=== PATIENT | male | born 1970 | race American Indian/Alaskan Native ===

== ENCOUNTER 2017-02-04 02:14 | Emergency (ER) | payer OTHER, SELFPAY ==
--- NOTE | 2017-02-04 03:48 | EDM.PDOCBH ---
ED HPI GENERAL MEDICAL PROBLEM - General Chief Complaint: Drug or Alcohol Abuse Stated Complaint: MEDICAL CLEARANCE FOR DETOX Time Seen by Provider: 02/04/17 03:46 Source of Information: Reports: Patient History Limitations: Reports: No Limitations - History of Present Illness INITIAL COMMENTS - FREE TEXT/NARRATIVE: brought in for intox clearance - Related Data Allergies Allergy/AdvReac Type Severity Reaction Status Date / Time Unable to Assess Allergy Unverified 02/04/17 03:38 Home Meds: Home Meds . [Unable to Verify Home Med List] 02/04/17 [History] ED ROS GENERAL - Review of Systems Review Of Systems: ROS reveals no pertinent complaints other than HPI. 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.) Eye Exam: Bilateral Eye: PERRL (pupils ess ER @ 4mm) Ears: Hearing Grossly Normal Throat/Mouth: Normal Voice, No Airway Compromise Head: Atraumatic Neck: Non-Tender, Full Range of Motion Respiratory/Chest: No Respiratory Distress Cardiovascular: Regular Rate, Rhythm GI/Abdominal: Soft, Non-Tender Neurological: Alert, Normal Cognition, Normal Gait, No Motor/Sensory Deficits, Oriented x 3 Skin Exam: Warm, Dry, Normal color COURSE, BEHAVIORAL HEALTH COMP - Course Vital Signs: Last Vital Signs Temp 35.8 C 02/04/17 03:08 Pulse 83 02/04/17 03:08 Resp 16 02/04/17 03:08 BP 114/80 02/04/17 03:08 Pulse Ox 97 02/04/17 03:08 Orders, Labs, Meds: Active Orders 24 hr Category Date Time Status COMPREHENSIVE METABOLIC PN,CMP [CHEM] Stat Lab 02/04/17 03:24 Received ETOH [ETHANOL BLOOD MEDICAL] [CHEM] Stat Lab 02/04/17 03:24 Received Laboratory Tests 02/04/17 Range/Units 03:24 WBC 9.1 (5.0-10.0) 10^3/uL RBC 5.09 (4.6-6.2) 10^6/uL Hgb 15.4 (14.0-18.0) g/dL Hct 44.9 (40.0-54.0) % MCV 88.2 (80-100) fL MCH 30.3 (27.0-34.0) pg MCHC 34.3 (33.0-35.0) g/dL Plt Count 258 (150-450) 10^3/uL Neut % (Auto) 53.3 (42.2-75.2) % Lymph % (Auto) 34.4 (20.5-50.1) % [place] % (Auto) 5.3 (2-8) % Eos % (Auto) 6.2 H (1.0-3.0) % Baso % (Auto) 0.8 (0.0-1.0) % Departure - Departure Time of Disposition: 03:47 Disposition: DC/Tfer to Court of Law En 21 Condition: Good Clinical Impression: Alcohol abuse - Discharge Information Additional Instructions: MEDICALLY CLEARED FOR DETOX - My Orders Last 24 Hours: My Active Orders 02/04/17 03:24 COMPREHENSIVE METABOLIC PN,CMP [CHEM] Stat ETOH [ETHANOL BLOOD MEDICAL] [CHEM] Stat - Assessment/Plan Last 24 Hours: My Active Orders 02/04/17 03:24 COMPREHENSIVE METABOLIC PN,CMP [CHEM] Stat ETOH [ETHANOL BLOOD MEDICAL] [CHEM] Stat
[2017-02-04 03:49] LABS: CHLORIDE,CL 106 mmol/L (101-111); SODIUM,NA 142 mmol/L (135-145)
== END 2017-02-04 03:55 ==
LOC: DL.ED 02:14
DX: F10.10 Alcohol abuse, uncomplicated (principal)
CPT/HCPCS: 36415; 80053; 85025; 99283; G0480

== ENCOUNTER 2018-10-12 01:44 | Emergency (ER) | payer MEDICAID, OTHER ==
[2018-10-12] MEDS ORDERED: LORazepam 2 MG/ML Syringe IVPUSH ONE (01:55)
[2018-10-12] MEDS ORDERED: LORazepam 2 MG/ML Syringe ONE (01:56)
--- NOTE | 2018-10-12 02:02 | EDM.PDOC ---
ED HPI GENERAL MEDICAL PROBLEM - General Chief Complaint: General Stated Complaint: ? Time Seen by Provider: 10/12/18 01:56 Source of Information: Reports: Police History Limitations: Reports: Intoxication - History of Present Illness INITIAL COMMENTS - FREE TEXT/NARRATIVE: brought in for med clearance. pt intox reasonably co-op. can only cuss at [employer] - Related Data Allergies Allergy/AdvReac Type Severity Reaction Status Date / Time Unable to Assess Allergy Verified 10/12/18 02:06 Home Meds: Home Meds . [Unable to Verify Home Med List] 02/04/17 [History] ED ROS GENERAL - Review of Systems Review Of Systems: ROS reveals no pertinent complaints other than HPI. ED EXAM, GENERAL - Physical Exam Exam: See Below Exam Limited By: Intoxication General Appearance: Alert, Other (intox, reasonably co-op) Eye Exam: Bilateral Eye: PERRL (pupils ess ER @ 4mm) Ears: Hearing Grossly Normal Throat/Mouth: Normal Voice, No Airway Compromise Head: Atraumatic Neck: Non-Tender, Full Range of Motion Respiratory/Chest: No Respiratory Distress Cardiovascular: Regular Rate, Rhythm GI/Abdominal: Soft, Non-Tender Neurological: Alert, No Motor/Sensory Deficits, Other (intox) Skin Exam: Warm, Dry, Normal Color Lymphatic: No Adenopathy Course - Vital Signs Last Recorded V/S: Last Vital Signs Temp 36.0 C 10/12/18 05:18 Pulse 96 10/12/18 05:18 Resp 20 10/12/18 05:18 BP 105/68 10/12/18 05:18 Pulse Ox 96 10/12/18 05:18 - Orders/Labs/Meds Labs: Laboratory Tests 10/12/18 Range/Units 01:56 Ethyl Alcohol 358 mg/dL Meds: Medications Discontinued Medications Generic Name Dose Route Start Last Admin Trade Name Freq PRN Reason Stop Dose Admin Lorazepam 2 mg 10/12/18 01:55 10/12/18 01:58 Ativan IVPUSH 10/12/18 01:56 2 mg ONETIME ONE Administration Lorazepam Confirm 10/12/18 01:56 10/12/18 02:13 Ativan Administered 10/12/18 01:57 Not Given Dose 2 mg .ROUTE .STK-MED ONE - Re-Assessments/Exams Free Text/Narrative Re-Assessment/Exam: 10/12/18 05:48 pt slept, woke up. Departure - Departure Time of Disposition: 05:50 Disposition: Home, Self-Care 01 Condition: Fair Clinical Impression: Alcohol abuse - Discharge Information Forms: ED Department Discharge Additional Instructions: 1) don't drink alcohol 2) follow up at clinic
== END 2018-10-12 05:49 | disposition home or self-care (01) ==
LOC: DL.ED 01:44
DX: F10.129 Alcohol abuse with intoxication, unspecified (principal); Y90.8 Blood alcohol level of 240 mg/100 ml or more; Z02.89 Encounter for other administrative examinations
CPT/HCPCS: 36415; 96374; 99284; G0480; J2060; 99283

== ENCOUNTER 2021-06-03 03:40 | Emergency (ER) | payer SELFPAY ==
[2021-06-03] MEDS ORDERED: Sodium Chloride 0.9% 1,000 ML IV ONE ×2 (03:47→05:20)
[2021-06-03] MEDS ORDERED: LORazepam 2 MG/ML SDV IVPUSH PRN (03:49)
[2021-06-03 04:27] LABS: ANION GAP 21.2 mEq/L (7-13); CHLORIDE,CL 104 mmol/L (98-107); SODIUM,NA 140 mmol/L (136-145)
[2021-06-03] MEDS ORDERED: Sodium Chloride 0.9% 1,000 ML IV SCH (05:00)
[2021-06-03 05:56] LABS: AMPHETAMINES,URINE NEGATIVE (NEGATIVE); BARBITURATES,URINE NEGATIVE (NEGATIVE); BENZODIAZEPINE,URINE NEGATIVE (NEGATIVE); MDMA (ECSTASY), URINE NEGATIVE (NEGATIVE); METHADONE,URINE NEGATIVE (NEGATIVE); METHAMPHETAMINES,URINE NEGATIVE (NEGATIVE); OPIATES,URINE NEGATIVE (NEGATIVE); OXYCODONE,URINE NEGATIVE (NEGATIVE); PHENCYCLIDINE,URINE NEGATIVE (NEGATIVE); TCA,URINE NEGATIVE (NEGATIVE)
== END 2021-06-03 07:40 | disposition home or self-care (01) ==
LOC: DL.ED 03:40
DX: T68.XXXA Hypothermia, initial encounter (principal); F10.10 Alcohol abuse, uncomplicated; Y90.8 Blood alcohol level of 240 mg/100 ml or more; S00.03XA Contusion of scalp, initial encounter; S80.02XA Contusion of left knee, initial encounter; W19.XXXA Unspecified fall, initial encounter
CPT/HCPCS: 36415; 51702; 70450; 72125; 72192; 80053; 80305; 80307; 81003; 82150; 82550; 82947; 83605; 85025; 85610; 93005; 99285; J7030

== ENCOUNTER 2022-08-13 23:00 | Emergency (ER) | payer BC | END 2022-08-13 23:40 | disposition left against medical advice (07) | LOC: DL.ED 23:00 | DX: F10.10 Alcohol abuse, uncomplicated (principal); J45.909 Unspecified asthma, uncomplicated | CPT/HCPCS: 99283; 99284 ==

== ENCOUNTER 2022-12-18 03:01 | Emergency (ER) | payer BC ==
[2022-12-18] MEDS ORDERED: Sodium Chloride 0.9% 10 ML Syringe FLUSH PRN (03:05)
[2022-12-18] MEDS ORDERED: Haloperidol Lactate 5 MG/ML SDV IM ONE (03:29)
[2022-12-18] MEDS ORDERED: Haloperidol Lactate 5 MG/ML SDV ONE (03:30)
[2022-12-18 07:07] LABS: BASOPHILS PERCENT AUTO 1.1 % (0.0-1.0); EOSINOPHILS PERCENT AUTO 4.5 % (1.0-3.0); HEMATOCRIT 44.9 % (40.0-54.0); HEMOGLOBIN 14.8 g/dL (14.0-18.0); LYMPHOCYTES PERCENT AUTO 37.8 % (20.5-50.1); MEAN CORPUSCULAR HEMOGLOBIN 30.3 pg (27.0-34.0); MEAN CORPUSCULAR VOLUME 91.8 fL (80-100); MONOCYTES PERCENT AUTO 6.7 % (2-8); NEUTROPHILS PERCENT AUTO 49.9 % (42.2-75.2); PLATELET COUNT,PLT 246 10^3/uL (150-450); RED BLOOD CELL COUNT 4.89 10^6/uL (4.6-6.2); WHITE BLOOD CELL COUNT,WBC 5.6 10^3/uL (5.0-10.0)
[2022-12-18 07:36] LABS: ALANINE AMINOTRANSFERASE,ALT 51 U/L (16-63); ALBUMIN 3.7 g/dL (3.4-5.0); ALKALINE PHOSPHATASE 113 U/L (46-116); ANION GAP 17.3 mEq/L (7-13); ASPARTATE AMNIOTRANSFERASE,AST 34 U/L (15-37); BILIRUBIN TOTAL 0.2 mg/dL (0.2-1.0); BLOOD UREA NITROGEN,BUN 10 mg/dL (7-18); CALCIUM 8.1 mg/dL (8.5-10.1); CARBON DIOXIDE,CO2 24 mmol/L (21-32); CHLORIDE,CL 108 mmol/L (98-107); ETHANOL BLOOD MEDICAL 263 mg/dL (0); GLUCOSE RANDOM 140 mg/dL (70-99); MAGNESIUM 2.2 mg/dL (1.8-2.4); POTASSIUM,K 4.3 mmol/L (3.5-5.1); PROTEIN TOTAL,TP 7.4 g/dL (6.4-8.2); SODIUM,NA 145 mmol/L (136-145)
[2022-12-18 07:38] LABS: ESTIMATED GFR 89 mL/min (>=60)
[2022-12-18 07:46] LABS: AMPHETAMINES,URINE NEGATIVE (NEGATIVE); BARBITURATES,URINE NEGATIVE (NEGATIVE); BENZODIAZEPINE,URINE NEGATIVE (NEGATIVE); MDMA (ECSTASY), URINE NEGATIVE (NEGATIVE); METHADONE,URINE NEGATIVE (NEGATIVE); METHAMPHETAMINES,URINE NEGATIVE (NEGATIVE); OPIATES,URINE NEGATIVE (NEGATIVE); OXYCODONE,URINE NEGATIVE (NEGATIVE); PHENCYCLIDINE,URINE NEGATIVE (NEGATIVE); TCA,URINE NEGATIVE (NEGATIVE)
== END 2022-12-18 08:01 | disposition home or self-care (01) ==
LOC: DL.ED 03:01
DX: S06.0X0A Concussion without loss of consciousness, initial encounter (principal); S00.01XA Abrasion of scalp, initial encounter; F10.129 Alcohol abuse with intoxication, unspecified; W18.39XA Other fall on same level, initial encounter
CPT/HCPCS: 36415; 70450; 80053; 80305-QW; 80307; 83735; 85025; 96372; 99284; 99285; J1630

== ENCOUNTER 2023-08-16 02:17 | Emergency (ER) | payer BC | END 2023-08-16 02:19 | disposition left against medical advice (07) | LOC: DL.ED 02:17 | DX: S00.01XA Abrasion of scalp, initial encounter (principal); F10.920 Alcohol use, unspecified with intoxication, uncomplicated; W01.0XXA Fall on same level from slipping, tripping and stumbling without subsequent striking against object, initial encounter; Y90.9 Presence of alcohol in blood, level not specified | CPT/HCPCS: 70450; 72125; 99283; 99284 ==